=== PATIENT | male | born 1950 | race Caucasian/White ===

== ENCOUNTER → 2018-05-27 | Outpatient (CLI) | payer OTHER | LOC: FIMAGING 19:32 | PROVIDERS: ATTEND Family Medicine | DX: M51.16 Intervertebral disc disorders with radiculopathy, lumbar region (principal); M51.26 Other intervertebral disc displacement, lumbar region; M21.379 Foot drop, unspecified foot; M43.16 Spondylolisthesis, lumbar region; M47.26 Other spondylosis with radiculopathy, lumbar region; M48.061 Spinal stenosis, lumbar region without neurogenic claudication ==

== ENCOUNTER 2018-06-10 20:33 | Observation (INO) | payer OTHER ==
--- NOTE | 2018-06-10 21:08 | EDPHY ---
H & P Time Seen by Provider: 06/10/18 20:52 HPI/ROS: CHIEF COMPLAINT: Back pain and bilateral foot drop HISTORY OF PRESENT ILLNESS: Patient 1st started getting symptoms around 2019 just finished backpacking [place]. It has progressed and he had an MRI that showed spinal stenosis and has been seeing Dr. Murillo from spine surgery. He presents today with worsening bilateral foot drop, and now having some back pain as well. He feels that his symptoms are progressing. He denies any urinary incontinence or numbness. The weakness has progressed so he wears braces on both feet but cannot dorsiflex either foot at the ankle. REVIEW OF SYSTEMS: Eye: no change in vision ENT: no sore throat Cardiac: no chest pain or syncope Pulmonary: no cough or SOB Abdomen: no vomiting, diarrhea, abdominal pain Musculoskeletal: HPI Skin: no rash Neuro: HPI Constitutional: no fever : no urinary symptoms A comprehensive 10 point review of systems is otherwise negative aside from elements mentioned in the history of present illness. PAST MEDICAL HISTORY: Includes cardiac stent in 2008 Social history: Currently nonsmoker General Appearance: Alert and conversant, cooperative. Eyes: No scleral icterus. ENT, Mouth: Normal mucous membranes. Respiratory: Normal respiratory effort, breath sounds equal, lungs are clear to auscultation. Cardiovascular: Regular rate and rhythm. Gastrointestinal: Abdomen is soft and non tender. Neurological: Alert, face symmetric. Normal sensation to light touch in both feet and patellar reflexes 1+ symmetric. He is wearing braces on both ankles. Skin: Warm and dry, no rashes. Musculoskeletal: No peripheral edema. Psychiatric: Not agitated. Emergency Department course/MDM: Discussed with his surgeon Dr. Jose L Murillo at 2057, requests that he admit to his service, NPO after midnight, surgery tomorrow. Patient is agreeable. Spine surgeon requests no further imaging or treatment at this time. Smoking Status: Former smoker Constitutional: Initial Vital Signs Temperature (C) 36.6 C 06/10/18 20:34 Heart Rate 92 06/10/18 20:34 Respiratory Rate 20 06/10/18 20:34 Blood Pressure 151/95 H 06/10/18 20:34 O2 Sat (%) 97 06/10/18 20:34 O2 Delivery Mode Room Air Allergies/Adverse Reactions: No Known Allergies Allergy (Verified 06/10/18 20:38) Home Medications: Medication Instructions Recorded Aspirin [Aspirin 81mg (*)] 02/25/15 Herbals/Supplements -Info Only 02/25/15 Crestor 06/09/18 Departure - Departure Disposition: [facility] Inpatient Acute Clinical Impression: Spinal stenosis Qualifiers: Spinal region: unspecified Qualified Code(s): M48.00 - Spinal stenosis, site unspecified Condition: Good Referrals: Nohemi Quinteros MD [Primary Care Provider] - As per Instructions
[2018-06-10 21:33] LABS: PLATELET COUNT 276 10^3/uL (150-400)
[2018-06-10 21:43] LABS: INR 1.05 (0.83-1.16); PROTIME(PATIENT) 13.9 SEC (12.0-15.0)
[2018-06-11] MEDS ORDERED: BUPIVACAINE/EPI 0.5% 30 ML SDV ONE (07:02)
[2018-06-11] MEDS ORDERED: BACITRACIN 50,000 UNITS/10 ML SYR IRR ONE (07:02)
[2018-06-11] MEDS ORDERED: CHLORHEXIDINE GLUC HIBICLENS 118 ML BTL TP ONE (07:04)
[2018-06-11] MEDS ORDERED: SURGIFLO MATRIX KIT WITH THROMBIN 8 ML TP ONE (07:04)
[2018-06-11] MEDS ORDERED: THROMBIN (BOVINE) 5,000 UNIT VIAL TP ONE (07:04)
[2018-06-11] MEDS ORDERED: VANCOMYCIN 1 GM VIAL ONE (07:05)
[2018-06-11] MEDS ORDERED: TRANEXAMIC ACID 1,000 MG/10 ML VIAL ONE (07:05)
[2018-06-11] MEDS ORDERED: ACETAMINOPHEN 500 MG TAB PO ONE (07:06)
[2018-06-11] MEDS ORDERED: TRANEXAMIC ACID 1,000 MG in NS 100 ML IV ONE (07:06)
[2018-06-11] MEDS ORDERED: ceFAZolin 2 GM/DEXTROSE 100 ML IV ONE (07:06)
[2018-06-11] MEDS ORDERED: MIDAZOLAM 2 MG/2 ML VIAL IVP ONE (07:08)
--- NOTE | 2018-06-11 07:08 | PDANEPAE ---
ANE History of Present Illness alissa ANE Past Medical History - Cardiovascular History Hx Hypertension: No Hx Arrhythmias: No Hx Chest Pain: No Hx Coronary Artery / Peripheral Vascular Disease: Yes Hx CHF / Valvular Disease: No Hx Palpitations: No Cardiovascular History Comment: cad with stent x1. monitors own bp. hyperlipidemia. white coat syndrome - Pulmonary History Hx COPD: No Hx Asthma/Reactive Airway Disease: No Hx Recent Upper Respiratory Infection: No Hx Oxygen in Use at Home: No Hx Sleep Apnea: No Sleep Apnea Screening Result - Last Documented: Negative - Neurologic History Hx Cerebrovascular Accident: No Hx Seizures: No Hx Dementia: No Neurologic History Comment: numbness off and on in toes x 18 months. massage therapy helps with about 70% of it per pt report. bilateral foot drop is most problematic for pt - Endocrine History Hx Diabetes: No Endocrine History Comment: parathyroid removed x1 - Renal History Hx Renal Disorders: No - Liver History Hx Hepatic Disorders: No - Neurological & Psychiatric Hx Hx Neurological and Psychiatric Disorders: No - Cancer History Hx Cancer: No - Congenital Disorder History Hx Congenital Disorders: No - GI History Hx Gastrointestinal Disorders: No - Other Health History Other Health History: wears glasses - Chronic Pain History Chronic Pain: No - Surgical History Prior Surgeries: appy 1955. cardiac stent placed 2008. parathyroidectomy 2009 ANE Review of Systems Review of Systems: - Exercise capacity Exercise capacity: >=4 METS ANE Patient History - Allergies Allergies/Adverse Reactions: No Known Allergies Allergy (Verified 06/10/18 20:38) - Home Medications Home Medications: Aspirin [Aspirin 81mg (*)] 81 mg PO HS 02/25/15 [Last Taken 06/06/18] Herbals/Supplements -Info Only 1 ea PO DAILY 02/25/15 [Last Taken 06/06/18] Rosuvastatin Calcium [Crestor 10mg (RX)] 5 mg PO Q2D 06/09/18 [Last Taken ] Cyclobenzaprine HCl [Cyclobenzaprine HCl] 10 mg PO TID PRN 06/10/18 [Last Taken 2 Weeks Ago ~05/27/18] Hydrocodone/Acetaminophen [Cro[place]ell 5/325 (*)] 1 - 2 tab PO Q6H PRN 06/10/18 [Last Taken 06/10/18 10:00] Lisinopril [Zestril 2.5 mg (*)] 2.5 mg PO DAILY 06/10/18 [Last Taken 06/06/18] - NPO status NPO Status: no food or drink >8 hours NPO Since - Liquids (Date): 06/11/18 NPO Since - Liquids (Time): 00:00 - Smoking Hx Smoking Status: Former smoker - Family Anes Hx Family Hx Anesthesia Complications: none ANE Labs/Vital Signs - Labs Result Diagrams: 06/10/18 21:11 06/10/18 21:11 - Vital Signs Blood Pressure: 136/70 Heart Rate: 63 Respiratory Rate: 18 O2 Sat (%): 96 Height: 185.42 cm Weight: 92.533 kg ANE Physical Exam - Airway Mallampati Score: Class 2 Mouth exam: normal dental/mouth exam, zavala - Pulmonary Pulmonary: no respiratory distress - Cardiovascular Cardiovascular: regular rate and rhythym - ASA Status ASA Status: II ANE Anesthesia Plan Anesthesia Plan: general endotracheal anesthesia
[2018-06-11] MEDS ORDERED: KETOROLAC 30 MG/1 ML SDV ONE (07:10)
[2018-06-11] MEDS ORDERED: SUCCINYLCHOLINE CHLORIDE 200 MG/10 ML SYR IVP ONE (07:10)
[2018-06-11] MEDS ORDERED: DEXAMETHASONE 4 MG/ML VIAL ONE (07:10)
[2018-06-11] MEDS ORDERED: LIDOCAINE 2% 2 ML INJ ONE ×2 (07:10)
[2018-06-11] MEDS ORDERED: ROCURONIUM 50 MG/5 ML VIAL ONE (07:10)
[2018-06-11] MEDS ORDERED: ONDANSETRON 4 MG/2 ML VIAL ONE (07:10)
[2018-06-11] MEDS ORDERED: PROPOFOL/EMULSION 500 MG/50 ML BOTTLE IV ONE (07:11)
[2018-06-11] MEDS ORDERED: fentaNYL 100 MCG/2 ML INJ ONE (07:11)
[2018-06-11] MEDS ORDERED: MIDAZOLAM 2 MG/2 ML VIAL ONE (07:12)
[2018-06-11] MEDS ORDERED: GLYCOPYRROLATE 0.2 MG/1 ML VIAL ONE (07:53)
[2018-06-11] MEDS ORDERED: ePHEDrine SULFATE 25 MG/5 ML SYR ONE (08:01)
[2018-06-11] MEDS ORDERED: SUGAMMADEX SODIUM 200 MG/2 ML VIAL IVP ONE (08:37)
[2018-06-11] MEDS ORDERED: NALOXONE HCL 0.4 MG/ML INJ IVP PRN (09:05)
[2018-06-11] MEDS ORDERED: ALBUTEROL 3 ML DEYVIAL IH PRN (09:05)
[2018-06-11] MEDS ORDERED: HYDROmorphONE/DILAUDID 2 MG/ML INJ IVP PRN (09:05)
[2018-06-11] MEDS ORDERED: ONDANSETRON 4 MG/2 ML VIAL IVP PRN (09:05)
[2018-06-11] MEDS ORDERED: LR 500 ML IV PRN (09:05)
[2018-06-11] MEDS ORDERED: fentaNYL 100 MCG/2 ML INJ IVP PRN (09:05)
--- NOTE | 2018-06-11 09:06 | POSTANESTH ---
Post Anesthetic Evaluation Cardiovascular Status: Normal, Stable Respiratory Status: Normal, Stable Level of Consciousness/Mental Status: Can Participate in Eval Pain Control: Adequate, Prn Tx Ordered Nausea/Vomiting Control: Adequate, Prn Tx Ordered Complications Possibly Related to Anesthesia: None Noted
--- NOTE | 2018-06-11 09:35 | SUROPNOTE ---
[facility] Operative Report - Surgery Date: 06/11/18 Pre-operative Diagnosis: L4/5 Herniated nucleus pulposus Bilateral Lower extremity radiculopathy, bilateral foot drop Post-operative Diagnosis: Same Procedure: Left L4/5 microdiscectomy, L4 laminotomy and bilateral decompression Surgeon: Zander Murillo MD Paediatric Physiotherapist: Alessia Mims Anesthesia: General endotracheal anesthesia Findings: As expected Estimated Blood Loss: 5mL Drains: None Specimens: None Complications: None Condition: Transferred to PACU in stable condition. Implants: None Indications: This patient has been diagnosed with a herniated nucleus pulposus with significant lower extremity weakness. I have explained all options of treatment for the patient, and the patient has elected to proceed with operative management. I have explained all risks, benefits, and alternatives of the proposed procedure. The risks that we have discussed include , blindness, nerve damage, recurrent disc herniation, infection, dural tear, failure of surgery to alleviate pre-operative symptoms, instability, and possible need for further operation. In addition to the aforementioned procedure, I also discussed with the patient that other procedures may be indicated during the course of surgery. The patient expressed understanding of this. Pre-operative: The proposed incision site was marked in the pre-operative holding area by me. The patient was then taken to the operating room in stable condition. Following smooth induction of general anesthesia, the patient was positioned prone on a Paulino table with all down surfaces well-padded. The patient was then prepped and draped in the usual sterile fashion. Pre-operative antibiotics and tranexamic acid were administered within one hour of the incision. A surgical timeout was performed, and all parties involved in the procedure were in agreement on the correct patient, location, and procedure to be performed. Level identification: The proposed L4/5 level was identified using C-arm fluoroscopy and the skin was marked for the proposed incision. A spinal needle was inserted under fluoroscopic guidance to the level of the decompression to be performed, 1cm lateral from midline. Following radiographic confirmation of proposed operative trajectory, a 25mm longitudinal incision was made through both the skin and fascia in an expected trajectory. Electrocautery was used to coagulate any bleeding vessels identified above the level of the fascia. A blunt probe was then passed through the fascial incision and docked on the lateral pars of the proposed level of dissection. Serial dilation was then performed, up to a size that would accommodate placement of a Metrx decompression tube. A sterile articulating arm was then attached to the table and affixed to the tube. Proper trajectory was again confirmed by lateral radiograph. The tube was docked on the caudal aspect of the cephalad level. Surgical microscope use: A surgical microscope was utilized throughout the decompressive portion of this case. This was deemed necessary for safe and accurate surgical decompression of affected nerve roots. Hemilaminotomy and discectomy: A high-speed davi was used to perform a hemilaminotomy of the caudal aspect of L4. The ligamentum flavum was elevated from the dura using blunt dissectors, and resected using Kerrison rongeurs. Using a dural retractor, the dural sac was retracted medially to allow for visualization of the affected disc space. Any extruded disc fragments were excised at this time. Using a #11 blade on a long handle, a cruciate annulotomy was performed. A nerve hook was then used to probe the disc space and nucleus pulposus. A disc punch was passed into the disc space, and any loose or easily freed disc fragments were removed. Any bleeding epidural vessels were coagulated using bipolar cautery and all dural retractors were removed. A radiograph was taken to demonstrate the location of the microdiscectomy, with instruments placed to identify the operative disc space. Decompression: Based on the amount of stenosis present preoperatively, the decision was made to perform a bilateral decompression from a unilateral approach. A high-speed davi was used to perform a hemilaminectomy of both the level cephalad and caudal to be decompressed. Both the L4 and L5 levels were decompressed in this manner. This portion of the case can be considered as a separate procedure to the discectomy. A partial facetectomy was performed at this level to allow for proper decompression, involving less than one-third of the medial facet at this level. The ligamentum flavum was left intact as a buffer to protect the dura while the ventral spinal process and contralateral lamina using a high-speed davi. At this time the ligamentum flavum was elevated from the dura using blunt dissectors and resected using Kerrison rongeurs. The contralateral lateral recess and foramina were identified and decompressed in a similar fashion. A Tejada ball probe was used to ensure thorough decompression of both the exiting and traversing nerve root on both sides. At this time, a ball probe was used to probe all foraminae at the affected levels. Where necessary, a small Kerrison rongeur was used to decompress remaining bone and soft tissue so that all nerve roots would traverse freely through the foraminae. Closure: The surgical field was then copiously irrigated with sterile saline. Vancomycin powder was then applied to the surgical field. #1 braided and absorbable interrupted sutures were used to repair the fascia. Then 2-0 interrupted sutures were used to repair the dermal layer, and a separate 3-0 monofilament suture was used to repair the subcutaneous layer in a running fashion. All sutures used were absorbable. Topical adhesive was then applied to the skin and allowed to dry. A sterile island dressing was applied over the surgical incision. A surgical count was performed before initiation of closure and following the procedure, and all were correct. I was present for the entire procedure. Surgical microscope use: A surgical microscope was utilized throughout the decompressive portion of this case. This was deemed necessary for safe and accurate surgical decompression of affected nerve roots. hr assistant: A surgical clinical reviewer was used throughout the case, and deemed necessary for safe neural retraction, hemostasis, and suction. Recovery: The patient was extubated uneventfully in the operating room. The patient was taken to the recovery room in stable condition. Sequential compression devices for VTE prophylaxis were applied to the patients lower extremities, and were ordered to be used while the patient was non-ambulatory. Chemical VTE prophylaxis was considered to be contraindicated for this patient because of the risk of bleeding near the epidural space. Zander Murillo MD
--- NOTE | 2018-06-11 09:49 | PDDCSUM ---
Discharge Summary Discharge Summary: On 06/10, patient was admitted with increasing bilateral leg pain and weakness On 06/11 he underwent an uneventful L4/5 microdiscectomy without complication. He did well with therapy and was cleared to go home on 06/11. All post-op instructions were given to pt in presurgical packet. f/u with Dr. Murillo in 2wks. Pt has Dr. Murillo's cell phone for urgent matters.
[2018-06-11] MEDS ORDERED: OXYCODONE/APAP 5/325 TAB PO ONE (11:15)
[2018-06-11] MEDS ORDERED: LR 1,000 ML IV ONE (11:30)
[2018-06-11 11:37] VITALS: BP 130/65
== END 2018-06-11 13:31 | disposition home or self-care (01) ==
LOC: INTOOBSV 21:08 → F3N 22:00
PROVIDERS: ADMIT Orthopaedic Surgery Orthopaedic Surgery of the Spine; ATTEND Orthopaedic Surgery Orthopaedic Surgery of the Spine
PROC: 00NY0ZZ Release Lumbar Spinal Cord, Open Approach (ICD-10-PCS; principal; 2018-06-10)
PROC: 4A11X4G Monitoring of Peripheral Nervous Electrical Activity, Intraoperative, External Approach (ICD-10-PCS; principal; 2018-06-10)
PROC: 8E0WXBZ Computer Assisted Procedure of Trunk Region (ICD-10-PCS; principal; 2018-06-10)
PROC: B01B1ZZ Fluoroscopy of Spinal Cord using Low Osmolar Contrast (ICD-10-PCS; principal; 2018-06-10)
PROC: 0SB20ZZ Excision of Lumbar Vertebral Disc, Open Approach (ICD-10-PCS; principal; 2018-06-10)
DX: M51.16 Intervertebral disc disorders with radiculopathy, lumbar region (principal); M21.371 Foot drop, right foot; M21.372 Foot drop, left foot; E78.5 Hyperlipidemia, unspecified; Z95.5 Presence of coronary angioplasty implant and graft; Z87.891 Personal history of nicotine dependence
CPT/HCPCS: 63030; G0378; J0330; J0690; J1100; J1885; J2250; J2405; J2704; J3010; J3370

== ENCOUNTER → 2018-07-06 | Outpatient (CLI) | payer OTHER | LOC: FIMAGING 12:10 | PROVIDERS: ATTEND Family Medicine | DX: N28.1 Cyst of kidney, acquired (principal) ==